=== PATIENT | male | born 1955 | race Caucasian/White ===

== ENCOUNTER 2017-05-26 09:41 | Day surgery (SDC) | payer MEDICARE, OTHER ==
[~2017-05-26 09:41] MED LIST: Lactated Ringers 1,000 ML IV SCH; Sodium Chloride 0.9% 10 ML Syringe FLUSH PRN
[2017-05-26] MEDS ORDERED: fentaNYL 100 MCG/2 ML SDV ONE ×2 (10:48→11:00)
[2017-05-26] MEDS ORDERED: Midazolam 1 MG/ML 2 ML SDV ONE ×2 (10:48→11:00)
[2017-05-26] MEDS ORDERED: Propofol 200 MG/20 ML SDV ONE ×2 (10:49→11:00)
--- NOTE | 2017-05-26 10:54 | PCM.PN ---
- General Info Date of Service: 05/26/17 - Review of Systems Systems Review Comment:: 61-year-old male referred for colonoscopy. He is medically stable to proceed today with no significant recent changes in his health status. His recent history and physical is reviewed. The patient did have colon polyps removed at the time of his last colonoscopy approximately 6 years ago. I discussed the proposed colonoscopy with the patient. Risks such as but not limited to bleeding and GI injury or reviewed. He appears to understand and agrees to proceed. - Patient Data Vitals - Most Recent: Last Vital Signs Temp 97.5 F 05/26/17 09:56 Pulse 94 05/26/17 09:56 Resp 20 05/26/17 09:56 BP 121/74 05/26/17 09:56 Pulse Ox 97 05/26/17 09:56 Weight - Most Recent: 103.419 kg Med Orders - Current: Current Medications Lactated Ringer's (Ringers, Lactated) 1,000 mls @ 125 mls/hr IV ASDIRECTED YESENIA Last Admin: 05/26/17 10:25 Dose: 125 mls/hr Sodium Chloride (Saline Flush) 10 ml FLUSH ASDIRECTED PRN PRN Reason: Keep Vein Open Discontinued Medications Fentanyl (Sublimaze) Confirm Administered Dose 100 mcg .ROUTE .STK-MED ONE Stop: 05/26/17 10:49 Midazolam HCl (Versed 1 Mg/Ml) Confirm Administered Dose 2 mg .ROUTE .STK-MED ONE Stop: 05/26/17 10:49 Propofol (Diprivan 20 Ml) Confirm Administered Dose 400 mg .ROUTE .STK-MED ONE Stop: 05/26/17 10:50 - Problem List Review Problem List Initiated/Reviewed/Updated: Yes - My Orders Last 24 Hours: My Active Orders 05/26/17 09:00 Patient Status [ADT] Routine Peripheral IV Care [RC] . DIRECTED Verify Patient Consent Obtain [RC] ASDIRECTED Lactated Ringers [Ringers, Lactated] 1,000 ml IV ASDIRECTED Sodium Chloride 0.9% [Saline Flush] 10 ml FLUSH ASDIRECTED PRN Peripheral IV Insertion Adult [OM.PC] Routine - Assessment Assessment:: History of colon polyps - Plan Plan:: Colonoscopy
--- NOTE | 2017-05-26 11:27 | PCM.OPNOTE ---
- General Post-Op/Procedure Note Date of Surgery/Procedure: 05/26/17 Operative Procedure(s): Colonoscopy Findings: Multiple Large Diverticuli in Sigmoid Colon Pre Op Diagnosis: History of Colon Polyps Post-Op Diagnosis: Diverticulosis Anesthesia Technique: MAC Primary Surgeon: Abhay Bolden Pathology: none Output, Urine Amount: 0 EBL in mLs: 0 Complications: None Condition: Good Free Text/Narrative:: Intake & Output 05/25/17 05/26/17 05/26/17 22:59 06:59 14:59 Intake Total 600 Balance 600
--- NOTE | 2017-05-26 14:36 | OR ---
Date of Procedure: 05/26/2017 PREOPERATIVE DIAGNOSIS: History of colon polyps. POSTOPERATIVE DIAGNOSIS: Diverticulosis. OPERATION PERFORMED: Colonoscopy. INDICATIONS FOR SURGERY: This 61-year-old male has a history of having had colon polyps removed in the past. It has been several years since his last colonoscopy and he comes for this exam. FINDINGS: No polyps were seen on today's exam. The patient does have a moderate to extensive amount of diverticulosis in the sigmoid colon with multiple large diverticula. These do not appear acutely inflamed at this time. PROCEDURE IN DETAIL: The patient was taken to the operating room. He was given intravenous sedation and with him in the left lateral decubitus position, digital rectal exam was performed showing no rectal masses. The Olympus colonoscope was inserted into the rectum. Retroflexed examination of the rectal canal was performed. The scope was then carefully advanced under direct visualization through the entire length of the colon until cecum is reached. Cecal acquisition was confirmed by noting the normal internal cecal anatomy including the appendiceal orifice and ileocecal valve. After the cecum had been carefully examined, the scope was slowly withdrawn, sequentially re-examining the colonic segments until the entire colon and rectum had been fully examined. The scope was then removed and the patient was taken from the operating room in satisfactory condition. ESTIMATED BLOOD LOSS: Zero. COMPLICATIONS: None. PROGNOSIS: Good. TYSON Bolden MD /[id number]
== END 2017-05-26 12:59 | disposition home or self-care (01) ==
LOC: LL.SDS 09:41
PROVIDERS: ATTEND Surgery
DX: Z12.11 Encounter for screening for malignant neoplasm of colon (principal); K57.30 Diverticulosis of large intestine without perforation or abscess without bleeding; E78.00 Pure hypercholesterolemia, unspecified; K21.9 Gastro-esophageal reflux disease without esophagitis; F32.9 Major depressive disorder, single episode, unspecified; J45.909 Unspecified asthma, uncomplicated; F41.9 Anxiety disorder, unspecified; I10 Essential (primary) hypertension; Z86.010 Personal history of colon polyps; Z79.899 Other long term (current) drug therapy; Z79.82 Long term (current) use of aspirin; Z87.891 Personal history of nicotine dependence
CPT/HCPCS: G0105; J2250; J2704; J3010; J7120; 00810-QZ

== ENCOUNTER 2019-01-26 08:44 | Emergency (ER) | payer MEDICARE, OTHER ==
--- NOTE | 2019-01-26 10:20 | EDM.PDOC ---
ED HPI GENERAL MEDICAL PROBLEM - General Chief Complaint: Chest Pain Stated Complaint: CHEST PAIN Time Seen by Provider: 01/26/19 09:15 Source of Information: Reports: Patient History Limitations: Reports: No Limitations - History of Present Illness INITIAL COMMENTS - FREE TEXT/NARRATIVE: Patient comes to ER complaining of left sided anterior chest discomfort. No history of similar pain in past. Takes daily ASA. Denies injury/new activity. Was out mowing lawn yesterday with push mower, says he has large lawn. Pain worse with laughing, moving left arm overhead, and taking deep breath. Denies any increased shortness of breath. No sweating/nausea/radiation of pain. Increased allergic type cough per patient, does not feel like infectious cough. Denies HEENT changes such as sore throat, headache. No new back pain/abdominal pain/limb pain. No bowel changes. Eating and drinking well. No UTI symptoms/hematuria. No focal limb weakness but notes that feel sometimes feel a bit numb after taking his 3 mile walks. No history of diabetes. chest pain Pain Score (Numeric/FACES): 5 - Related Data Allergies Allergy/AdvReac Type Severity Reaction Status Date / Time Grain,dust,grass Allergy Sneezing Uncoded 01/26/19 09:10 Home Meds: Home Meds Acetaminophen 1,000 mg PO Q4H PRN 05/25/17 [History] Acetaminophen/Chlorpheniramine [Coricidin HBP Cold & Flu] 1 tab PO ASDIRECTED PRN 05/25/17 [History] Albuterol [IJD: Ventolin HFA] 2 puff INH Q4H PRN 05/25/17 [History] Flaxseed/Omega3,6,9/Fatty Acid [Flax Seed Oil 1,300 mg Softgel] 1 tab PO BEDTIME 05/25/17 [History] L.acidoph,Paracasei, B.lactis [Probiotic] 1 cap PO DAILY@1200 05/25/17 [History] Lisinopril 30 mg PO DAILY 05/25/17 [History] Lutein 20 mg PO DAILY@1200 05/25/17 [History] Metoprolol Succinate [Toprol XL] 25 mg PO DAILY 05/25/17 [History] Pantoprazole Sodium [Protonix] 1 tab PO DAILY@1200 05/25/17 [History] Pot Bicarb/Sod Bicarb/Cit Ac [[place] Gold Tab Eff] 1 tab PO Q4H PRN [History] Simvastatin [Zocor] 10 mg PO BEDTIME 05/25/17 [History] buPROPion [Wellbutrin XL] 150 mg PO DAILY 05/25/17 [History] Ascorbate Calcium [Vitamin C] 500 mg PO DAILY 01/26/19 [History] Aspirin [Halfprin] 81 mg PO DAILY 01/26/19 [History] Calcium Carbonate 500 mg PO ASDIRECTED PRN 01/26/19 [History] Simethicone [Gas Relief] 2 tab PO DAILY@1200 01/26/19 [History] Past Medical History HEENT History: Reports: Allergic Rhinitis Cardiovascular History: Reports: Blood Clots/VTE/DVT, High Cholesterol, Hypertension Respiratory History: Reports: Asthma Gastrointestinal History: Reports: Colon Polyp, Diverticulosis, GERD Genitourinary History: Reports: Chronic Renal Insuffiency Musculoskeletal History: Reports: Arthritis Neurological History: Reports: Other (See Below) Other Neuro History: Bilateral carpal tunnel; shoulder impingement syndrome Psychiatric History: Reports: None Endocrine/Metabolic History: Reports: None Hematologic History: Reports: None Immunologic History: Reports: None Oncologic (Cancer) History: Reports: None Dermatologic History: Reports: None - Past Surgical History HEENT Surgical History: Reports: Myringotomy w Tube(s), Tonsillectomy GI Surgical History: Reports: Colonoscopy Musculoskeletal Surgical History: Reports: Joint Replacement, Other (See Below) Other Musculoskeletal Surgeries/Procedures:: Right TKA; left arthroscopic knee surgery x2. Social & Family History - Tobacco Use Smoking Status *Q: Former Smoker - Caffeine Use Caffeine Use: Reports: Coffee - Alcohol Use Alcohol Use History: Yes Days Per Week of Alcohol Use: 7 Number of Drinks Per Day: 3 Total Drinks Per Week: 21 Alcohol Use Frequency: Daily - Recreational Drug Use Recreational Drug Use: No Drug Use in Last 12 Months: No Recreational Drug Type: Reports: Marijuana/Hashish ED ROS GENERAL - Review of Systems Review Of Systems: ROS reveals no pertinent complaints other than HPI. ED EXAM, GENERAL - Physical Exam Exam: See Below Exam Limited By: No Limitations General Appearance: Alert, WD/WN, No Apparent Distress Eye Exam: Bilateral Eye: EOMI, PERRL Ears: Normal External Exam Nose: No: Nasal Deformity, Nasal Swelling, Nasal Drainage Throat/Mouth: Normal Lips, Normal Voice, No Airway Compromise Head: Atraumatic, Normocephalic Neck: Normal Inspection, Supple, Non-Tender, Full Range of Motion. No: Carotid Bruit Respiratory/Chest: No Respiratory Distress, Lungs Clear, Normal Breath Sounds, No Accessory Muscle Use, Chest Non-Tender Cardiovascular: Normal Peripheral Pulses, Regular Rate, Rhythm, No Edema, No Murmur GI/Abdominal: Normal Bowel Sounds, Soft, Non-Tender, Other (protuberant abdomen) (Male) Exam: Deferred Rectal (Males) Exam: Deferred Back Exam: No: CVA Tenderness (L), CVA Tenderness (R), Muscle Spasm, Paraspinal Tenderness, Vertebral Tenderness Extremities: Normal Inspection, Normal Range of Motion, Non-Tender, No Pedal Edema, Normal Capillary Refill. No: Roseann's Sign Neurological: Alert, Oriented, Normal Cognition, Normal Gait, No Motor/Sensory Deficits (Sensation appears intact/symetric lower limbs) Psychiatric: Normal Affect, Normal Mood Skin Exam: Warm, Dry, Intact, Normal Color, No Rash EKG INTERPRETATION EKG Date: 01/26/19 Time: 08:48 Rhythm: NSR Rate (Beats/Min): 69 Reform: Normal P-Wave: Present QRS: Normal ST-T: Normal QT: Normal Course - Orders/Labs/Meds Orders: Active Orders 24 hr Category Date Time Status EKG Documentation Completion [RC] ASDIRECTED Care 01/26/19 09:11 Active Chest 1V Frontal [CR] Stat Exams 01/26/19 09:11 Taken Labs: Laboratory Tests 01/26/19 01/26/19 01/26/19 Range/Units 08:55 08:55 08:55 WBC 5.1 (4.0-10.2) K/uL RBC 4.64 (4.33-5.41) M/uL Hgb 15.4 (13.1-16.8) g/dL Hct 44.0 (39.0-49.0) % MCV 94.8 (84.0-98.0) fL MCH 33.2 (28.2-33.3) pg MCHC 35.0 (31.7-36.0) g/dL RDW 12.6 (11.2-14.1) % Plt Count 213 (150-350) K/uL Neut % (Auto) 55.9 (45.0-80.0) % Lymph % (Auto) 27.1 (10.0-50.0) % [place] % (Auto) 8.3 (2.0-14.0) % Eos % (Auto) 8.3 H (0.0-5.0) % Baso % (Auto) 0.4 (0.0-2.0) % Neut # (Auto) 2.82 (1.40-7.00) K/uL Lymph # (Auto) 1.37 (0.50-3.50) K/uL [place] # (Auto) 0.42 (0.00-1.00) K/uL Eos # (Auto) 0.42 (0.00-0.50) K/uL Baso # (Auto) 0.02 (0.00-0.20) K/uL PT 9.9 (9.5-12.0) SEC INR 0.9 APTT 27.1 (21.0-31.3) SEC D-Dimer, Quantitative 429 H (0-400) ng/mL Sodium (136-145) mmol/L Potassium (3.5-5.1) mmol/L Chloride (98-107) mmol/L Carbon Dioxide (21.0-32.0) mmol/L BUN (7-18) mg/dL Creatinine (0.51-1.17) mg/dL Est Cr Clr Drug Dosing mL/min Estimated GFR (MDRD) mL/min Glucose (74-106) mg/dL Hemoglobin A1c (4.3-5.7) % Lactic Acid (0.4-2.0) mmol/L Calcium (8.5-10.1) mg/dL Magnesium (1.8-2.4) mg/dL Total Bilirubin (0.2-1.0) mg/dL AST (15-37) U/L ALT (12-78) U/L Alkaline Phosphatase (46-116) IU/L Creatine Kinase (26-308) U/L Creatine Kinase Index (0.0-2.5) % CK-MB (CK-2) (0.00-3.60) ng/mL Troponin I (0.000-0.056) ng/mL NT-Pro-B Natriuret Pep (0-125) pg/mL Total Protein (6.4-8.2) g/dL Albumin (3.4-5.0) g/dL Specimen Type Urine Color Urine Appearance Urine pH (5.0-9.0) Ur Specific [place] (1.005-1.030) Urine Protein (NEGATIVE) mg/dL Urine Glucose (UA) (NEGATIVE) mg/dL Urine Ketones (NEGATIVE) mg/dL Urine Occult Blood (NEGATIVE) Urine Nitrite (NEGATIVE) Urine Bilirubin (NEGATIVE) Urine Urobilinogen (0.2-1.0) E.U./dL Ur Leukocyte Esterase (NEGATIVE) Urine RBC /HPF Urine WBC /HPF Urine Bacteria (NONE TO FEW) /HPF 01/26/19 01/26/19 01/26/19 Range/Units 08:55 08:55 09:00 WBC (4.0-10.2) K/uL RBC (4.33-5.41) M/uL Hgb (13.1-16.8) g/dL Hct (39.0-49.0) % MCV (84.0-98.0) fL MCH (28.2-33.3) pg MCHC (31.7-36.0) g/dL RDW (11.2-14.1) % Plt Count (150-350) K/uL Neut % (Auto) (45.0-80.0) % Lymph % (Auto) (10.0-50.0) % [place] % (Auto) (2.0-14.0) % Eos % (Auto) (0.0-5.0) % Baso % (Auto) (0.0-2.0) % Neut # (Auto) (1.40-7.00) K/uL Lymph # (Auto) (0.50-3.50) K/uL [place] # (Auto) (0.00-1.00) K/uL Eos # (Auto) (0.00-0.50) K/uL Baso # (Auto) (0.00-0.20) K/uL PT (9.5-12.0) SEC INR APTT (21.0-31.3) SEC D-Dimer, Quantitative (0-400) ng/mL Sodium 137 (136-145) mmol/L Potassium 4.0 (3.5-5.1) mmol/L Chloride 103 (98-107) mmol/L Carbon Dioxide 25.6 (21.0-32.0) mmol/L BUN 29 H (7-18) mg/dL Creatinine 1.26 H (0.51-1.17) mg/dL Est Cr Clr Drug Dosing 61.96 mL/min Estimated GFR (MDRD) 58 mL/min Glucose 129 H (74-106) mg/dL Hemoglobin A1c 5.8 H (4.3-5.7) % Lactic Acid 2.0 (0.4-2.0) mmol/L Calcium 9.1 (8.5-10.1) mg/dL Magnesium 1.7 L (1.8-2.4) mg/dL Total Bilirubin 0.6 (0.2-1.0) mg/dL AST 26 (15-37) U/L ALT 40 (12-78) U/L Alkaline Phosphatase 51 (46-116) IU/L Creatine Kinase 191 (26-308) U/L Creatine Kinase Index 2.7 H (0.0-2.5) % CK-MB (CK-2) 5.20 H* (0.00-3.60) ng/mL Troponin I 0.000 (0.000-0.056) ng/mL NT-Pro-B Natriuret Pep 70 (0-125) pg/mL Total Protein 7.0 (6.4-8.2) g/dL Albumin 3.4 (3.4-5.0) g/dL Specimen Type Urine Color Urine Appearance Urine pH (5.0-9.0) Ur Specific [place] (1.005-1.030) Urine Protein (NEGATIVE) mg/dL Urine Glucose (UA) (NEGATIVE) mg/dL Urine Ketones (NEGATIVE) mg/dL Urine Occult Blood (NEGATIVE) Urine Nitrite (NEGATIVE) Urine Bilirubin (NEGATIVE) Urine Urobilinogen (0.2-1.0) E.U./dL Ur Leukocyte Esterase (NEGATIVE) Urine RBC /HPF Urine WBC /HPF Urine Bacteria (NONE TO FEW) /HPF 01/26/19 Range/Units 09:50 WBC (4.0-10.2) K/uL RBC (4.33-5.41) M/uL Hgb (13.1-16.8) g/dL Hct (39.0-49.0) % MCV (84.0-98.0) fL MCH (28.2-33.3) pg MCHC (31.7-36.0) g/dL RDW (11.2-14.1) % Plt Count (150-350) K/uL Neut % (Auto) (45.0-80.0) % Lymph % (Auto) (10.0-50.0) % [place] % (Auto) (2.0-14.0) % Eos % (Auto) (0.0-5.0) % Baso % (Auto) (0.0-2.0) % Neut # (Auto) (1.40-7.00) K/uL Lymph # (Auto) (0.50-3.50) K/uL [place] # (Auto) (0.00-1.00) K/uL Eos # (Auto) (0.00-0.50) K/uL Baso # (Auto) (0.00-0.20) K/uL PT (9.5-12.0) SEC INR APTT (21.0-31.3) SEC D-Dimer, Quantitative (0-400) ng/mL Sodium (136-145) mmol/L Potassium (3.5-5.1) mmol/L Chloride (98-107) mmol/L Carbon Dioxide (21.0-32.0) mmol/L BUN (7-18) mg/dL Creatinine (0.51-1.17) mg/dL Est Cr Clr Drug Dosing mL/min Estimated GFR (MDRD) mL/min Glucose (74-106) mg/dL Hemoglobin A1c (4.3-5.7) % Lactic Acid (0.4-2.0) mmol/L Calcium (8.5-10.1) mg/dL Magnesium (1.8-2.4) mg/dL Total Bilirubin (0.2-1.0) mg/dL AST (15-37) U/L ALT (12-78) U/L Alkaline Phosphatase (46-116) IU/L Creatine Kinase (26-308) U/L Creatine Kinase Index (0.0-2.5) % CK-MB (CK-2) (0.00-3.60) ng/mL Troponin I (0.000-0.056) ng/mL NT-Pro-B Natriuret Pep (0-125) pg/mL Total Protein (6.4-8.2) g/dL Albumin (3.4-5.0) g/dL Specimen Type Urinvoid Urine Color Yellow Urine Appearance Clear Urine pH 6.0 (5.0-9.0) Ur Specific [place] 1.015 (1.005-1.030) Urine Protein Negative (NEGATIVE) mg/dL Urine Glucose (UA) Negative (NEGATIVE) mg/dL Urine Ketones Negative (NEGATIVE) mg/dL Urine Occult Blood Negative (NEGATIVE) Urine Nitrite Negative (NEGATIVE) Urine Bilirubin Negative (NEGATIVE) Urine Urobilinogen 0.2 (0.2-1.0) E.U./dL Ur Leukocyte Esterase Negative (NEGATIVE) Urine RBC Not seen /HPF Urine WBC Not seen /HPF Urine Bacteria Not seen (NONE TO FEW) /HPF Meds: Medications Discontinued Medications Generic Name Dose Route Start Last Admin Trade Name Freq PRN Reason Stop Dose Admin Magnesium Sulfate/Dextrose 1 100 mls @ 100 mls/hr 01/26/19 10:17 01/26/19 10: 28 gm/ Premix IV 01/26/19 11:16 100 mls/hr ONETIME ONE Administration - Radiology Interpretation Free Text/Narrative:: Chest xray unremarkable for acute processes/pneumonia/fluid - Re-Assessments/Exams Free Text/Narrative Re-Assessment/Exam: 01/26/19 11:51 Labs unremarkable except for increase in CKMB and index. Troponin zero. EKG unremarkable. Chest xray unremarkable. DDImer barely above normal range. Mild elevation Cr. Given that the pain was triggered by overhead arm movement, deep breathing, and coughing, most likely musculoskeletal in etiology. Discussed possible admission to observation with telemetry and serial lab work to monitor cardiac enzymes. Patient declined and wished to go home. He promised that he would return of any worsening problems developed. He similarly declined PE study to formally rule out PE given the mildly elevated DDimer. Patient denies SOB. Again, pattern of pain is more suggestive of muscle/ skeletal origin. Patient has history of arthritis of left shoulder. Also has significant issues with GERD which could also be a contributor to chest pain. Mag given as patient had low Mg noted. Low Mag can contribute to muscle/ skeletal pain. To follow up with primary provider next week and discuss possible stress test. Precautions reviewed in ER. To follow up over the weekend if problems re- develop and be re-evaluated. Departure - Departure Time of Disposition: 11:57 Disposition: Home, Self-Care 01 Condition: Good Clinical Impression: Intermittent left-sided chest pain - Discharge Information *PRESCRIPTION DRUG MONITORING PROGRAM REVIEWED*: Not Applicable *COPY OF PRESCRIPTION DRUG MONITORING REPORT IN PATIENT VITALY: Not Applicable Instructions: Nonspecific Chest Pain, [id number], Chest Wall Pain, Easy-to- Read Referrals: Deja Otero PA-C [Primary Care Provider] - Forms: ED Department Discharge Additional Instructions: Observe for changes and follow up in ER over the weekend if chest pain issues re -develop. Chest pain accompanied by racing heart, sweating, nausea, and shortness of breath is particularly concerning. We will repeat labs and also consider the CT study to rule out pulmonary embolism if you have problems. Start supplemental Magnesium, CoQ10, Vit D, and digestive enzymes as discussed in ER. Take a digestive enzyme before all moderate to large meals. Dietary changes as discussed highly recommended. Have your main meal between 12 -3pm. Small meal only in evening if you eat. Do not eat after 7pm. - My Orders Last 24 Hours: My Active Orders 01/26/19 09:11 EKG Documentation Completion [RC] ASDIRECTED Chest 1V Frontal [CR] Stat - Assessment/Plan Last 24 Hours: My Active Orders 01/26/19 09:11 EKG Documentation Completion [RC] ASDIRECTED Chest 1V Frontal [CR] Stat
[2019-01-26 10:35] LABS: HEMOGLOBIN A1C 5.8 % (4.3-5.7)
== END 2019-01-26 12:35 | disposition home or self-care (01) ==
LOC: LL.ED 08:44
DX: R07.89 Other chest pain (principal); E78.00 Pure hypercholesterolemia, unspecified; I12.9 Hypertensive chronic kidney disease with stage 1 through stage 4 chronic kidney disease, or unspecified chronic kidney disease; N18.9 Chronic kidney disease, unspecified; J45.909 Unspecified asthma, uncomplicated; K21.9 Gastro-esophageal reflux disease without esophagitis; Z91.048 Other nonmedicinal substance allergy status; Z79.899 Other long term (current) drug therapy; Z79.82 Long term (current) use of aspirin; Z86.73 Personal history of transient ischemic attack (TIA), and cerebral infarction without residual deficits; Z87.891 Personal history of nicotine dependence
CPT/HCPCS: 36415; 71045; 80053; 81001; 82550; 82553; 83036; 83605; 83735; 83880; 84484; 85025; 85379; 85610; 85730; 93005; 96365; 99285; J3475

== ENCOUNTER 2020-07-10 09:26 | Day surgery (SDC) | payer MEDICARE, OTHER ==
--- OUTSIDE RECORDS SUMMARY | 2020-06-24 09:19 | XMSREPORT | Referral Summary ---
:1955 Author Organization [facility] Address [address] [place] [id number] Care Team Providers Name Role Phone Luis Felipe Otero PA-C Attributed Provider Luis Felipe Otero PA-C Primary Care Provider Reason for Referral FCC Prior Auth (Routine) Status Reason Specialty Diagnoses / Referred By Referred To Procedures Contact Contact NOT REQUIRED Diagnoses Scrotal mass Deja Otero PA-C Procedures US SCROTUM WITH DUPLEX [address] [place] [address] Transitions of Care (Routine) Status Reason Specialty Diagnoses / Referred By Referred To Procedures Contact Contact New Request Service Not Diagnoses History of colon polyps Deja Otero, Health, Chi Available at PA-C [facility] [address] [place] [id number] Phone: Fax: Reason for Visit Reason Comments Abdominal Pain Pressure in L. Lower ab, lauren oing couple of weeks, hx of diverticulitis, taking gasX Encounter Details Date Type Department Care Team Description 06/23/2020 Office Visit [facility] Deja Otero, Veronika hyperch olesterolemia (Primary Dx); [facility] OMI Essential hypertension; [address] Prediabetes; [place] [address] [address] Right lower quadrant abdominal pain; [phone] [facility] Screening for p rostate cancer; [id number] History of colon polyps; [phone] Scrotal mass Allergies Active Allergy Reactions Severity Noted Date Comments Environmental Allergens Other (Specify in 02/12/2016 Grain, dust, grass Comments) documented as of this encounter (statuses as of 06/23/2020) Medications Medication Sig Dispensed Refills Start Date End Date Status Probiotic Product Take 1 tablet 0 Active (PRO-BIOTIC BLEND PO) by mouth 1 time per day. Takes with lunch omega-3 krill oil 300 MG Take 300 mg 0 Active capsule by mouth 1 time a day at supper. Flaxseed, Linseed, (FLAX Take 1,300 mg 0 Active SEED OIL PO) by mouth 2 times a day. Takes with lunch and supper glucosamine-chondroitin Take 1 0 Active (JOINT FLEX) 500-400 mg capsule by capsule mouth 2 times a day. Takes with lunch and supper Lutein 20 MG TABS Take 20 mg by 0 Active mouth 1 time per day. Takes at lunch acetaminophen (TYLENOL) 500 Take 1,000 mg 0 Active mg tablet by mouth Every 4 hours as needed (do NOT exceed 4000 mg per 24 hours from all sources). sodium & potassium Take 1 tablet 0 Active bicarbonate (TERESA-SELTZER by mouth GOLD) TBEF Every 4 hours as needed aspirin 81 MG Take 4 90 tablet 0 10/09/2018 Activ e tabletIndications: Pure tablets (324 hypercholesterolemia mg) by mouth 1 time per day Additional Information Patient taking differently: 81 mg Oral DAILY, Reported on 07/02/2019 2:08 PM atorvaSTATin (LIPITOR) 20 Take 1 tablet (20 90 tablet 3 2019 Active mg tabletIndications: mg) by mouth Pure hypercholesterolemia every night at bedtime lisinopril TAKE 1 TABLET 90 tablet 3 07/02/2019 Acti ve (PRINIVIL,ZESTRIL) 30 MG ONCE DAILY tabletIndications: Essential hypertension metoprolol succinate TAKE 1 TABLET 90 tablet 3 07/02/2019 Active (TOPROL XL) 25 mg SR DAILY tablet (24 hr)Indications: Essential hypertension buPROPion (WELLBUTRIN) 75 Take 1 tablet (75 21 tablet 0 06/06 Discontinued mg tabletIndications: mg) by mouth 1 8/2 0 (Patient Dysphoric mood time per day for 21 discontinued 14 days, THEN 0.5 me dication) tablets (37.5 mg) 1 time per day for 14 days. albuterol (PROVENTIL) Inhale 1 nebule 1 box 0 08/20/2019 0 06/06 Discontinued (2.5 mg/3mL) 0.083% (2.5 mg) by 01/23 (Therapy inhalation nebulization 09 24 comp leted) solutionIndications: times a day as Bronchitis needed for shortness of breath, wheezing or cough promethazine-codeine Take 5 mL by 240 mL 0 08/30/201906/06 Discontinued (PHENERGAN WITH CODEINE) mouth at bedtime 01/23 (Therapy 6.25 mg-10 mg/5mL oral as needed for 21 completed) syrupIndications: cough Bronchitis Hospital, Clinic, or Ordered Dose Route Frequency Start Date End D ate Status Other Facility Administered Medication albuterol (PROVENTIL) 2.5 mg NEB Now 08/20/2019 021 Discontinued (2.5 mg/3mL) 0.083% inhalation soln 2.5 mgIndications: Wheezing ipratropium 0.5 mg NEB Now 08/20/2019 06/23/2020 Discon tinued (ATROVENT) 0.5 mg/2.5 mL inhalation soln 0.5 mgIndications: Wheezing documented as of this encounter (statuses as of 06/23/2020) Active Problems Problem Noted Date Prediabetes 06/25/2019 Obesity with body mass index of 30.0-39.9 10/09/2018 Dysphoric mood 03/15/2016 Impingement syndrome, shoulder 01/05/2016 Cubital tunnel syndrome on left 05/13/2014 Cubital tunnel syndrome on right 05/13/2014 Bilateral carpal tunnel syndrome 05/13/2014 GERD (gastroesophageal reflux disease) 03/08/2014 DVT (deep venous thrombosis) 01/21/2014 Overview: Following right TKA Essential hypertension 10/09/2007 Polyp of colon, hyperplastic 03/24/2006 Overview: 1 small hyperplastic polyp, colonoscopy at [facility], [place] Allergic rhinitis Pure hypercholesterolemia documented as of this encounter (statuses as of 06/23/2020) Resolved Problems Problem Noted Date Resolved Date Knee pain, chronic 07/01/2015 07/30/2015 Primary osteoarthritis of left knee 03/24/201507/08 S/P total knee arthroplasty 01/21/2014 07/02/2019 Overview: Right TKA DJD (degenerative joint disease) of knee 01/03/2014 07/30/2015 Osteoarthritis, knee 11/03/2012 07/30/2015 Osteoarthritis of right knee 02/04/2012 07/30/2015 Unspecified asthma(493.90) 03/25/2015 documented as of this encounter (statuses as of 06/23/2020) Immunizations Name Administration Dates Next Due FLU VACCINE MULTIDOSE 03/24/2015, 03/07/2014 0.5mL(6MO+Fluzone/Flulaval,Afluria) FLU VACCINE SINGLE DOSE 03/09/2018, 05/11/2017 0.5mL(6MO+Fluzone/Flulaval/Fluarix,3 YR+Afluria) Influenza Vaccine,unspecified 05/21/2020, 04/24/2019, 2014, 03/07/2014 TDAP 01/26/2016 Td(adult)preservative free 10/07/2004 Zoster Live(Zostavax) 11/06/2015 documented as of this encounter Social History Tobacco Use Types Packs/Day Years Used Date Former Smoker Cigarettes Quit: 06/06/18 80 Smokeless Tobacco: Former User Q uit: 06/06/2005 Alcohol Use Drinks/Week oz/Week Comments Yes 7-21 Shots of liquor 7.0 - 21.0 Physical Activity Answer Date Recorded On average, how many days per week do you engage in moderate to 7 days 07/02/2019 strenuous exercise (like walking fast, running, jogging, dancing, swimming, biking, or other activities that cause a light or heavy sweat)? On average, how many minutes do you engage in exercise at th is 30 min 07/02/2019 level? Sex Assigned at Date Recorded Not on file documented as of this encounter Last Filed Vital Signs Vital Sign Reading Time Taken Comments Blood Pressure 134/66 06/23/2020 3:00 PM [facility] [employer] Pulse 71 06/23/2020 3:00 PM [employer] Temperature 36.2 C (97.2 F) 06/23/2020 3:00 PM [employer] [employer] Respiratory Rate 16 06/23/2020 3:00 PM [employer] [employer] Oxygen Saturation 99% 06/23/2020 3:00 PM [employer] Inhaled Oxygen Concentration - - Weight 97.5 kg (215 lb) 06/23/2020 3:00 PM [employer] [employer] Height - - Body Mass Index 30.85 07/02/2019 2:09 PM [employer] documented in this encounter Functional Status Functional Status Response Date of Assessment Is the person deaf or does he/she have serious difficulty No 02/02/2016 hearing? Is this person blind or does he/she have difficulty No 02/02/2016 seeing even when wearing glasses? Do you have difficulty with walking, balance, climbing No 02/02/2016 stairs, or had a fall in the last 3 months? Does the patient have difficulty dressing or bathing? No 06/26/2015 Because of a physical, mental, or emotional condition; No 06/26/2015 does this person have difficulty doing errands alone such as visiting a doctor's office or shopping? Cognitive Status Response Date of Assessment Because of a physical, mental, or emotional condition; No 06/26/2015 does this person have serious difficulty concentrating, remembering, or making decisions? documented as of this encounter Patient Instructions Patient InstructionsDeja Otero PA-C - 06/23/2020 3:13 PM CSTUpdated labs today. This to include: cholesterol, sugars, electrolytes, liver function, kidney function, red & white blood cells, and PSA (screening of prostate health). We will call you tomorrow with these results and any susequent recommendations. If within normal limits, I will refill your medswithout change. Due to possible low BP readings at home, I would encourage you to bring your home cuff in to check for accuracy. Otherwise stop by the clinic upon your next low reading to confirm. You are due for a few health maintenance/preventative measures: Shingles vaccine. Ask your insurance about this. If they cover, find out where and get on the wait list (typically 3 months long). If they do not cover, and you are still interested, cheapest out of pocket is [facility]. Call to coordinate this. Pneumonia vaccine. Your insurance likely DOES cover. I would recommend you get this at your earliestconvenience. Colonoscopy. ER [facility]ER documented in this encounter Plan of Treatment Date Type Specialty Care Team Description 06/23/2020 Orders Only Laboratory Need for hepati tis C screening test; Screening for H IV (human immunodeficiency virus); Prediabetes; Pure hyperchole sterolemia; Essential hyper tension; Right lower lalitha drant abdominal pain; Screening for p rostate cancer Name Type Priority Associated Diagnoses Date/Ti me GLYCATED HEMOGLOBIN Lab Routine Prediabetes 06/23/19 3:12 PM [facility] [employer] COMPREHENSIVE METABOLIC Lab Routine Pure hyp ercholesterolemia 06/23/2020 3:12 PANEL Essential hypertension PM CS T LIPID PANEL Lab Routine Pure hypercholesterolemia 3:12 PM [employer] [employer] COMPLETE BLOOD COUNT Lab Routine Right lower quadrant abdominal 06/23/2020 3:12 WITH DIFFERENTIAL pain PM [employer] PSA MEDICARE SCREEN Lab Routine Screening for prostat e cancer 06/23/2020 3:12 PM [employer] [employer] Name Type Priority Associated Diagnoses Order S chedule GLYCATED HEMOGLOBIN Lab Routine Prediabetes Expected : 06/23/2020 (Approximate), Expires: 07/24/2021 COMPREHENSIVE Lab Routine Pure hypercholes terolemia Expected: METABOLIC PANEL Essential hypertension (Approximate), Expires: 07/24/2021 LIPID PANEL Lab Routine Pure hypercholesterolemia Ex pected: 06/23/2020 (Approximate), Expires: 07/24/2021 COMPLETE BLOOD COUNT Lab Routine Right lower quadrant Expected: WITH DIFFERENTIAL abdominal pain 06/23/19 (Approximate), Expires: 07/24/2021 PSA MEDICARE SCREEN Lab Routine Screening for prostat e cancer Expected: 06/23/2020 (Approximate), Expires: 07/24/2021 US SCROTUM WITH DUPLEX Imaging Routine Scrotal mass Expec baudilio: 06/23/2020 (Approximate), Expires: 07/24/2021 Name Type Priority Associated Diagnoses Order S chedule CLINIC REFERRAL Referral Routine History of colon polyps O rdered: 06/23/2020 ENDOSCOPY NON ONE CHART documented as of this encounter Implants Implanted Type Area Weaver Needle Loom Device Shelf Model / Identifier Expiration Serial / Date Lot Cmnt Simplex P W Tobramyacin N 6197-9-010 Bx10/Ea - Sn/A Ortho R ight: ASAD 11/07/2014 [id number] / Implanted: Qty: 1 on 01/07/2014 by Mayito Salinas MD at [facility] Other KNEE N/A / [id number] Cmnt Simplex P W Tobramyacin N 6197-9-010 Bx10/Ea - Sn/A Ortho L eft: ASAD 08/03/2016 [id number] / Implanted: Qty: 1 on 07/01/2015 by Mayito Salinas MD at [facility] Other KNEE N/A / [id number] Description:Verfied by Dr. Salinas and [facility] team Knee Psn Tib Stem 5d Sz F Rt N [id number] Ea - Sn/A Tota l Jt Knee Right: [place]EE [place] 09/08/2023 [id number] / Implanted: Qty: 1 on 01/07/2014 by Maytio Salinas MD at [facility] N/A / [id number] Knee Psn Fem Pscmt Std Rt Sz8 N [id number] Ea - Sn/A Tot al Jt Knee Right: [employer]EE [place] 10/08/2023 [id number] / Implanted: Qty: 1 on 01/07/2014 by Mayito Salinas MD at [facility] N/A / [id number] Knee Psn Asf Ps Ve Rt14 6-9 Ef N [id number] Ea - Sn/A To candi Jt Knee Right: K[place]EE [place] 03/09/2018 [id number] / Implanted: Qty: 1 on 01/07/2014 by Mayito Salinas MD at [facility] N/A / [id number] Knee Psn Ptla All Poly Ve 35mm N [id number] Ea - Sn/A To candi Jt Knee Right: [employer]EE [place] 11/07/2018 [id number] / Implanted: Qty: 1 on 01/07/2014 by Mayito Salinas MD at [facility] N/A / [id number] Knee Psn Tib Stem 5d Sz F Lft N [id number] Ea - Sn/A Tot al Jt Knee Left: K[place]EE [place] 03/05/[id number] / Implanted: Qty: 1 on 07/01/2015 by Mayito Salinas MD at [facility] N/A / [id number] Description:Verified by Dr. Salinas and [facility] rg[facility] team. Knee Psn Ptla All Pe Ve 38mm N [id number] Ea - Sn/A Tota l Jt Knee Left: K[employer]EE [place] 12/04/2019 [id number] / Implanted: Qty: 1 on 07/01/2015 by Mayito Salinas MD at [facility] N/A / [id number] Description:Verified by Dr. Salinas and [facility]te[facility] rgical team. Knee Psn Asf Ucve Lft13 4-11ef N [id number] Ea - Sn/A To candi Jt Knee Left: [employer]EE [place] 11/04/2019 [id number] / Implanted: Qty: 1 on 07/01/2015 by Mayito Salinas MD at [facility] N/A / [id number] Description:[facility]. Knee Psn Fem Crcmnt Std Lftsz8 N [id number] Ea - Sn/A To candi Jt Knee Left: [place]EE [place] 02/03/2025 [id number] / Implanted: Qty: 1 on 07/01/2015 by Mayito Salinas MD at [facility] N/A / [id number] Description:[facility] documented as of this encounter Visit Diagnoses Diagnosis Pure hypercholesterolemia - Primary Essential hypertension Unspecified essential hypertension Prediabetes Other abnormal glucose Right lower quadrant abdominal pain Abdominal pain, right lower quadrant Screening for prostate cancer Special screening for malignant neoplasm of prostate History of colon polyps Personal history of colonic polyps Scrotal mass Other specified disorder of male genital organs Need for hepatitis C screening test Special screening examination for other specified viral diseases Screening for HIV (human immunodeficienc y virus) Special screening examination for other specified viral diseases Prediabetes Other abnormal glucose Pure hypercholesterolemia Essential hypertension Unspecified essential hypertension Right lower quadrant abdominal pain Abdominal pain, right lower quadrant Screening for prostate cancer Special screening for malignant neoplasm of prostate documented in this encounter
[~2020-07-10 09:26] MED LIST changes: -Lactated Ringers 1,000 ML IV SCH; +Midazolam 1 MG/ML 2 ML SDV ONE; +Propofol 200 MG/20 ML SDV ONE; -Sodium Chloride 0.9% 10 ML Syringe FLUSH PRN
[2020-07-10] MEDS ORDERED: Lactated Ringers 1,000 ML IV SCH (09:45)
[2020-07-10] MEDS ORDERED: Sodium Chloride 0.9% 10 ML Syringe FLUSH PRN (09:45)
[2020-07-10] MEDS ORDERED: Propofol 200 MG/20 ML SDV ONE (11:09)
[2020-07-10] MEDS ORDERED: Midazolam 1 MG/ML 2 ML SDV ONE (11:09)
--- NOTE | 2020-07-10 11:30 | PCM.HPR ---
H & P Addendum review - H & P Addendum Review Date of Original H & P: 06/23/20 Date Reviewed: 07/10/20 Time Reviewed: 10:50 Patient was Examined: No Changes
--- NOTE | 2020-07-10 11:32 | PCM.OPNOTE ---
- General Post-Op/Procedure Note Date of Surgery/Procedure: 07/10/20 Operative Procedure(s): Colonoscopy Findings: Sig tics Pre Op Diagnosis: Hx Polyps Post-Op Diagnosis: Same Anesthesia Technique: MAC Primary Surgeon: Clifford Fagan Anesthesia Provider: Roxanna Zayas Complications: None Condition: Good
--- NOTE | 2020-07-10 13:10 | OR ---
Date of Procedure: 07/10/2020 PREOPERATIVE DIAGNOSIS: History of colon polyps. POSTOPERATIVE DIAGNOSIS: Sigmoid diverticulosis. PROCEDURE: Colonoscopy. ANESTHESIA: IV sedation. PROCEDURE IN DETAIL: The patient was brought to the procedure room where he was placed on his left side and IV sedation administered. Digital rectal exam was performed which was normal. Colonoscope was inserted and advanced to the level of the cecum without difficulty. Cecal position was confirmed by identifying the appendiceal lumen and ileocecal valve. Prep was fairly good with some thick stool remaining on the surface of the cecum that was mostly irrigated and suctioned such that I could ensure no large polyps or other abnormalities were present. Upon withdrawing the scope, the ascending, transverse, and descending colon were normal in appearance. Sigmoid colon had multiple large diverticula present. Rectum was normal and retroflexion was normal. Air was removed and the scope withdrawn. Patient tolerated the procedure well and returned to recovery in stable condition. Recommend routine colon screening again in 5 years. MODL ALVA LOCKHART MD /[id number]
== END 2020-07-10 12:47 | disposition home or self-care (01) ==
LOC: LL.SDS 09:26
PROVIDERS: ATTEND Surgery
DX: K57.30 Diverticulosis of large intestine without perforation or abscess without bleeding (principal); E78.00 Pure hypercholesterolemia, unspecified; I10 Essential (primary) hypertension; K21.9 Gastro-esophageal reflux disease without esophagitis; E66.9 Obesity, unspecified; J45.909 Unspecified asthma, uncomplicated; Z01.812 Encounter for preprocedural laboratory examination; Z20.822 Contact with and (suspected) exposure to COVID-19; Z86.010 Personal history of colon polyps; Z79.82 Long term (current) use of aspirin; Z79.899 Other long term (current) drug therapy; Z98.890 Other specified postprocedural states; Z68.30 Body mass index [BMI] 30.0-30.9, adult
CPT/HCPCS: 00812; J2250; J2704; J7120; U0002